=== PATIENT | male | born 1965 | race Caucasian/White ===

== ENCOUNTER 2019-02-23 14:49 | Observation (INO) | payer MEDICAID ==
[2019-02-23] MEDS ORDERED: Sodium Chloride 0.9% 1,000 ML IV ONE (15:15)
[2019-02-23] MEDS ORDERED: Ondansetron 4 MG/2 ML SDV IVPUSH ONE (15:23)
--- NOTE | 2019-02-23 15:49 | EDM.PDOC ---
ED HPI GENERAL MEDICAL PROBLEM - General Chief Complaint: Abdominal Pain Stated Complaint: PANCREAS ISSUES Time Seen by Provider: 02/23/19 15:14 Source of Information: Reports: Patient History Limitations: Reports: No Limitations - History of Present Illness INITIAL COMMENTS - FREE TEXT/NARRATIVE: HISTORY AND PHYSICAL: History of present illness: Patient is a 53-year-old male presents to the ED today with concern of mid abdominal pain 3 days. Patient states he has had one bout of prior pancreatitis which is felt somewhat similar to his symptoms today. Patient states his last episode was 5 years ago. Patient states it is caused by alcohol use. Patient states he drinks about 6 beers a day and every day. Patient rates his discomfort a 9 out of 10. Patient states he also feels nauseous but has not vomited. Patient states he's continued to eat despite the pain. Patient denies any other symptoms at this time. Patient denies scrotal or testicular pain or masses. Patient denies fever, chills, chest pain, shortness of breath, or cough. Denies headache, neck stiff ness, change in vision, syncope, or near syncope. Denies vomiting, diarrhea, constipation, or dysuria. Has not noted any blood in urine or stool. Patient has been eating and drinking appropriately. Patient denies any other health history. Review of systems: As per history of present illness and below otherwise all systems reviewed and negative. Past medical history: As per history of present illness and as reviewed below otherwise noncontributory. Surgical history: As per history of present illness and as reviewed below otherwise noncontributory. Social history: See social history for further information Family history: As per history of present illness and as reviewed below otherwise noncontributory. Physical exam: General: Patient is alert, oriented, and in no acute distress. Patient laying comfortably on exam table. Patient appears older than stated age. HEENT: Atraumatic, normocephalic, pupils equal and reactive bilaterally, negative for conjunctival pallor or scleral icterus, mucous membranes moist, TMs normal bilaterally, throat clear, neck supple, nontender, trachea midline. No drooling or trismus noted. No meningeal signs. No hot potato voice noted. Lungs: Mild wheezing to auscultation, breath sounds equal bilaterally, chest nontender. Heart: S1S2, regular rate and rhythm without overt murmur Abdomen: Moderate pain to palpation of the mid abdomen without guarding. Soft, nondistended. Negative for masses or hepatosplenomegaly. Negative for costovertebral tenderness. Pelvis: Stable nontender. Genitourinary: Deferred. Rectal: Deferred. Skin: Intact, warm, dry. No lesions or rashes noted. Extremities: Atraumatic, negative for cords or calf pain. Neurovascular unremarkable. Neuro: Awake, alert, oriented. Cranial nerves II through XII unremarkable. Cerebellum unremarkable. Motor and sensory unremarkable throughout. Exam nonfocal. Notes: Dr. Saldana verbally involved in patient care. Dr. Deal was consulted on patient and will admit to observation. Voices understanding and is agreeable to plan of care. Denies any further questions or concerns at this time. Diagnostics: CBC, CMP, UA, chest x-ray, EKG, troponin, lipase, amylase, abdominal pelvic CT, ABG, Blood ketone Therapeutics: Saline, Zofran, morphine, insulin Impression: Pancreatitis, unspecified Elevated glucose Plan: 1. Admit to observation to Dr. Deal. Definitive disposition and diagnosis as appropriate pending reevaluation and review of above. Left abdomen Pain Score (Numeric/FACES): 6 - Related Data Allergies Allergy/AdvReac Type Severity Reaction Status Date / Time No Known Allergies Allergy Verified 02/23/19 15:06 Home Meds: Home Meds Aspirin 325 mg PO DAILY 02/23/19 [History] Lisinopril 20 mg PO DAILY 02/23/19 [History] metFORMIN [Glucophage] 500 mg PO BID 02/23/19 [History] Past Medical History - Past Health History Medical/Surgical History: Denies Medical/Surgical History Gastrointestinal History: Reports: Pancreatitis Social & Family History - Family History Family Medical History: Noncontributory - Tobacco Use Smoking Status *Q: Current Every Day Smoker Years of Tobacco use: 20 Packs/Tins Daily: 1 - Caffeine Use Caffeine Use: Reports: Coffee - Recreational Drug Use Recreational Drug Use: Yes Recreational Drug Type: Reports: Marijuana/Hashish Recreational Drug Use Frequency: Socially ED ROS GENERAL - Review of Systems Review Of Systems: ROS reveals no pertinent complaints other than HPI. ED EXAM, GI/ABD - Physical Exam Exam: See Below (See dictation) Course - Vital Signs Last Recorded V/S: Last Vital Signs Temp 37.1 C 02/23/19 15:08 Pulse 91 02/23/19 15:08 Resp 22 H 02/23/19 15:08 BP 162/118 H 02/23/19 15:08 Pulse Ox 94 L 02/23/19 15:08 - Orders/Labs/Meds Orders: Active Orders 24 hr Category Date Time Status EKG Documentation Completion [RC] STAT Care 02/23/19 15:31 Active Glucose [Blood Glucose Check, Bedside] [RC] ONETIME Care 02/23/19 17:06 Active BLOOD GAS ARTERIAL [BG] Stat Lab 02/23/19 16:10 Ordered Labs: Laboratory Tests 02/23/19 02/23/19 02/23/19 Range/Units 15:15 15:26 15:26 WBC 5.44 (4.0-11.0) K/uL RBC 4.81 (4.50-5.90) M/uL Hgb 13.2 (13.0-17.0) g/dL Hct 38.8 (38.0-50.0) % MCV 80.7 (80.0-98.0) fL MCH 27.4 (27.0-32.0) pg MCHC 34.0 (31.0-37.0) g/dL RDW Std Deviation 43.3 (28.0-62.0) fl RDW Coeff of Chloe 15 (11.0-15.0) % Plt Count 169 (150-400) K/uL MPV 10.60 (7.40-12.00) fL Neut % (Auto) 67.3 (48.0-80.0) % Lymph % (Auto) 21.7 (16.0-40.0) % [place] % (Auto) 5.3 (0.0-15.0) % Eos % (Auto) 5.5 (0.0-7.0) % Baso % (Auto) 0.2 (0.0-1.5) % Neut # (Auto) 3.7 (1.4-5.7) K/uL Lymph # (Auto) 1.2 (0.6-2.4) K/uL [place] # (Auto) 0.3 (0.0-0.8) K/uL Eos # (Auto) 0.3 (0.0-0.7) K/uL Baso # (Auto) 0.0 (0.0-0.1) K/uL Nucleated RBC % 0.0 /100WBC Nucleated RBCs # 0 K/uL Sodium 129 L (136-148) mmol/L Potassium 5.0 (3.5-5.1) mmol/L Chloride 95 L (98-107) mmol/L Carbon Dioxide 23.4 (21.0-32.0) mmol/L BUN 17 (7.0-18.0) mg/dL Creatinine 1.3 (0.8-1.3) mg/dL Est Cr Clr Drug Dosing 73.79 mL/min Estimated GFR (MDRD) 58.2 ml/min Glucose 646 H* (74-106) mg/dL POC Glucose (60-110) mg/dL Calcium 9.7 (8.5-10.1) mg/dL Total Bilirubin 0.4 (0.2-1.0) mg/dL AST 25 (15-37) IU/L ALT 41 (14-63) IU/L Alkaline Phosphatase 124 H (46-116) U/L Troponin I (0.000-0.056) ng/mL Total Protein 7.9 (6.4-8.2) g/dL Albumin 4.1 (3.4-5.0) g/dL Globulin 3.8 (2.6-4.0) g/dL Albumin/Globulin Ratio 1.1 (0.9-1.6) Amylase 57 (25-115) U/L Lipase 438 H (73-393) U/L Urine Color YELLOW Urine Appearance CLEAR Urine pH 6.0 (5.0-8.0) Ur Specific [place] <= 1.005 (1.001-1.035) Urine Protein NEGATIVE (NEGATIVE) mg/dL Urine Glucose (UA) >=1000 (NEGATIVE) mg/dL Urine Ketones NEGATIVE (NEGATIVE) mg/dL Urine Occult Blood NEGATIVE (NEGATIVE) Urine Nitrite NEGATIVE (NEGATIVE) Urine Bilirubin NEGATIVE (NEGATIVE) Urine Urobilinogen 0.2 (<2.0) EU/dL Ur Leukocyte Esterase NEGATIVE (NEGATIVE) Ketones (NEG) 02/23/19 02/23/19 02/23/19 Range/Units 15:26 15:26 17:14 WBC (4.0-11.0) K/uL RBC (4.50-5.90) M/uL Hgb (13.0-17.0) g/dL Hct (38.0-50.0) % MCV (80.0-98.0) fL MCH (27.0-32.0) pg MCHC (31.0-37.0) g/dL RDW Std Deviation (28.0-62.0) fl RDW Coeff of Chloe (11.0-15.0) % Plt Count (150-400) K/uL MPV (7.40-12.00) fL Neut % (Auto) (48.0-80.0) % Lymph % (Auto) (16.0-40.0) % [place] % (Auto) (0.0-15.0) % Eos % (Auto) (0.0-7.0) % Baso % (Auto) (0.0-1.5) % Neut # (Auto) (1.4-5.7) K/uL Lymph # (Auto) (0.6-2.4) K/uL [place] # (Auto) (0.0-0.8) K/uL Eos # (Auto) (0.0-0.7) K/uL Baso # (Auto) (0.0-0.1) K/uL Nucleated RBC % /100WBC Nucleated RBCs # K/uL Sodium (136-148) mmol/L Potassium (3.5-5.1) mmol/L Chloride (98-107) mmol/L Carbon Dioxide (21.0-32.0) mmol/L BUN (7.0-18.0) mg/dL Creatinine (0.8-1.3) mg/dL Est Cr Clr Drug Dosing mL/min Estimated GFR (MDRD) ml/min Glucose (74-106) mg/dL POC Glucose 285 H (60-110) mg/dL Calcium (8.5-10.1) mg/dL Total Bilirubin (0.2-1.0) mg/dL AST (15-37) IU/L ALT (14-63) IU/L Alkaline Phosphatase (46-116) U/L Troponin I < 0.050 (0.000-0.056) ng/mL Total Protein (6.4-8.2) g/dL Albumin (3.4-5.0) g/dL Globulin (2.6-4.0) g/dL Albumin/Globulin Ratio (0.9-1.6) Amylase (25-115) U/L Lipase (73-393) U/L Urine Color Urine Appearance Urine pH (5.0-8.0) Ur Specific [place] (1.001-1.035) Urine Protein (NEGATIVE) mg/dL Urine Glucose (UA) (NEGATIVE) mg/dL Urine Ketones (NEGATIVE) mg/dL Urine Occult Blood (NEGATIVE) Urine Nitrite (NEGATIVE) Urine Bilirubin (NEGATIVE) Urine Urobilinogen (<2.0) EU/dL Ur Leukocyte Esterase (NEGATIVE) Ketones NEGATIVE (NEG) Meds: Medications Discontinued Medications Generic Name Dose Route Start Last Admin Trade Name Freq PRN Reason Stop Dose Admin Sodium Chloride 1,000 mls @ 999 mls/hr 02/23/19 15:15 02/23/19 15:32 Normal Saline IV 02/23/19 16:15 999 mls/hr BOLUS ONE Administration Insulin Human Regular 10 unit 02/23/19 16:08 02/23/19 16:45 Novolin R IVPUSH 02/23/19 16:09 10 unit ONETIME ONE Administration Protocol Insulin Human Regular 20 unit 02/23/19 16:09 02/23/19 16:49 Novolin R SUBCUT 02/23/19 16:10 20 unit ONETIME ONE Administration Protocol Iopamidol 90 ml 02/23/19 16:40 02/23/19 16:41 Isovue Multipack-370 (76%) IVPUSH 02/23/19 16:41 90 ml ONETIME ONE Administration Morphine Sulfate 2 mg 02/23/19 16:07 02/23/19 16:14 Morphine IVPUSH 02/23/19 16:08 2 mg ONETIME ONE Administration Ondansetron HCl 4 mg 02/23/19 15:23 02/23/19 15:33 Zofran IVPUSH 02/23/19 15:24 4 mg ONETIME ONE Administration Departure - Departure Time of Disposition: 17:40 Disposition: Refer to Observation Clinical Impression: Elevated glucose Pancreatitis Qualifiers: Chronicity: acute Pancreatitis type: other Acute pancreatitis complication: unspecified Qualified Code(s): K85.80 - Other acute pancreatitis without necrosis or infection - Discharge Information - My Orders Last 24 Hours: My Active Orders 02/23/19 15:31 EKG Documentation Completion [RC] STAT 02/23/19 16:10 BLOOD GAS ARTERIAL [BG] Stat 02/23/19 17:06 Glucose [Blood Glucose Check, Bedside] [RC] ONETIME - Assessment/Plan Last 24 Hours: My Active Orders 02/23/19 15:31 EKG Documentation Completion [RC] STAT 02/23/19 16:10 BLOOD GAS ARTERIAL [BG] Stat 02/23/19 17:06 Glucose [Blood Glucose Check, Bedside] [RC] ONETIME
[2019-02-23] MEDS ORDERED: Morphine 2 MG/ML Syringe IVPUSH ONE (16:07)
[2019-02-23] MEDS ORDERED: Insulin Regular, Human 100 Units/ML 10 ML Vial IVPUSH ONE (16:08)
[2019-02-23] MEDS ORDERED: Insulin Regular, Human 100 Units/ML 10 ML Vial SUBCUT ONE (16:09)
[2019-02-23] MEDS ORDERED: Iopamidol 755 MG/ML 500 ML Multipack Bottle IVPUSH ONE (16:40)
--- NOTE | 2019-02-23 16:55 | CR ---
HISTORY: Chest pain and shortness of breath. COMPARISON: None available FINDINGS: A portable erect AP view of the chest was obtained at 16 30 hours. The lungs are clear. No focal or diffuse infiltrates are present. Bilateral nipple shadows are seen. The heart is normal in size. The mediastinum is normal in appearance. The osseous structures are normal in appearance for the patient`s age. IMPRESSION: Normal portable chest single view. Dictated by Eric Garrison MD @ Feb 23 2019 4:52PM Signed by Dr. Eric Garrison @ Feb 23 2019 4:54PM
--- NOTE | 2019-02-23 17:30 | CT ---
INDICATION: Upper abdominal pain TECHNIQUE: CT abdomen and pelvis acquired with IV contrast. 90 mL of Isovue 370 administered COMPARISON: None available FINDINGS: Lower chest: Few small pulmonary nodular opacities measuring up to 3 mm. Liver: Unremarkable. Spleen: Unremarkable. Pancreas: Multiple pancreatic calcifications consistent with chronic calcific pancreatitis. Partially atrophic distal pancreatic body and tail. Gallbladder and bile ducts: An apparent small subtle curvilinear density within the gallbladder on image 50 could represent a poorly calcified gallstone or artifact. Adrenal glands: Slight adrenal nodularity. Kidneys: No hydronephrosis. Small nonobstructing left renal calcifications measuring up to 2 mm. A 1.7 cm higher than water attenuation left renal upper pole low-density lesion. Additional subcentimeter renal low-density lesions are too small to characterize, statistically representing cysts. GI tract: No high-grade mechanical bowel obstruction. Some fluid and gas-filled small bowel segments are nonspecific. A normal appendix. No significant pericolonic changes. Stool throughout the colon. Vascular structures: Minor, early atherosclerotic changes. Lymph nodes: Few shotty subcentimeter and borderline upper abdominal lymph nodes, nonspecific. Miscellaneous: No significant free fluid or free air. Pelvic Organs: A mildly prominent prostate. Mild bladder wall thickening. Bones: Unremarkable for age. IMPRESSION: No evidence of appendicitis, diverticulitis or high-grade mechanical bowel obstruction. Fluid and gas-filled small bowel segments are nonspecific. Correlate clinically to exclude enteritis. Findings consistent with chronic calcific pancreatitis. Partial atrophy of the distal pancreatic body and tail. A definite pancreatic body mass is not delineated, however further evaluation with contrast MRI is recommended. A mildly higher than water attenuation left renal low-density lesion which could represent a complicated cyst. Correlate with sonography and/or contrast MRI evaluation. Nonobstructive left renal calcifications. Mild bladder wall thickening. Correlate with urinalysis. Dictated by Tommie Calzada MD @ 02/23/2019 5:27:28 PM Please note that all CT scans at this facility use dose modulation, iterative reconstruction, and/or weight-based dosing when appropriate to reduce radiation dose to as low as reasonably achievable. Dictated by: Tommie Calzada MD @ 02/23/2019 17:28:01 (Electronically Signed)
[2019-02-23 18:10] LABS: HEMOGLOBIN A1C 10.3 % (4.5-6.2)
[2019-02-23] MEDS ORDERED: Docusate Sodium 100 MG Cap PO PRN (18:21)
[2019-02-23] MEDS ORDERED: Acetaminophen 325 MG Tab PO PRN (18:21)
[2019-02-23] MEDS ORDERED: oxyCODONE 5 MG Tab PO PRN (18:21)
[2019-02-23] MEDS ORDERED: Ondansetron 4 MG Tab.DIS PO PRN (18:21)
[2019-02-23] MEDS: Sodium Chloride 0.9% 1,000 ML IV SCH (18:49)
[2019-02-23] MEDS: Morphine 2 MG/ML Syringe IV PRN ×2 (18:50→21:45)
[2019-02-23] MEDS: Enoxaparin 40 MG/0.4 ML Syringe SUBCUT SCH (18:52)
--- NOTE | 2019-02-23 19:45 | PCM.HP ---
H&P History of Present Illness - General Date of Service: 02/23/19 Admit Problem/Dx: Admission Diagnosis/Problem Admission Diagnosis/Problem Pancreatitis Source of Information: Patient History Limitations: Reports: No Limitations - History of Present Illness Initial Comments - Free Text/Narative: The patient is a 53-year-old gentleman who presented to the emergency department out of complaint of severe abdominal pain which radiated directly to his back. The patient reports that he does have a history of chronic pancreatitis and he says this feels the same. The patient also reports that he had been consuming alcohol recently. Patient has been in the area for 3 days and he is from [place]. Also on presentation the patient's blood sugar was 646 mg/dL. Patient has had some nausea and vomiting associated with this. He has denied any dizziness or lightheadedness. He has no other complaints at the present time. The patient has said that he has been taking his medications. Onset of Symptoms: Reports: Sudden Duration of Symptoms: Reports: Day(s):, Getting Worse Location: Reports: Abdomen Quality: Reports: Stabbing, Throbbing Severity: Moderate Improves with: Reports: Medication, Rest Worsens with: Reports: Eating Context: Denies: Sick Contact Associated Symptoms: Reports: Nausea/Vomiting Left abdomen Pain Score (Numeric/FACES): 9 - Related Data Allergies/Adverse Reactions: Allergies Allergy/AdvReac Type Severity Reaction Status Date / Time No Known Allergies Allergy Verified 02/23/19 15:06 Home Medications: Home Meds Aspirin 325 mg PO DAILY 02/23/19 [History] Lisinopril 20 mg PO DAILY 02/23/19 [History] metFORMIN [Glucophage] 500 mg PO BID 02/23/19 [History] Past Medical History - Past Health History Medical/Surgical History: Denies Medical/Surgical History HEENT History: Reports: None Cardiovascular History: Reports: None Respiratory History: Reports: None Gastrointestinal History: Reports: Pancreatitis Genitourinary History: Reports: None Musculoskeletal History: Reports: None Neurological History: Reports: None Psychiatric History: Reports: None Endocrine/Metabolic History: Reports: Diabetes, Type II Hematologic History: Reports: None Immunologic History: Reports: None Oncologic (Cancer) History: Reports: None Dermatologic History: Reports: None - Past Surgical History GI Surgical History: Reports: None Social & Family History - Family History Family Medical History: Noncontributory - Tobacco Use Smoking Status *Q: Current Every Day Smoker Years of Tobacco use: 30 Packs/Tins Daily: 1 Second Hand Smoke Exposure: Yes - Caffeine Use Caffeine Use: Reports: Coffee - Alcohol Use Number of Drinks Per Day: 1 Date of Last Drink: 02/23/19 Time of Last Drink: 10:00 - Recreational Drug Use Recreational Drug Use: No Recreational Drug Type: Reports: Marijuana/Hashish Recreational Drug Use Frequency: Socially - Living Situation & Occupation Living situation: Reports: Single Occupation: Employed H&P Review of Systems - Review of Systems: Review Of Systems: See Below General: Reports: No Symptoms HEENT: Reports: No Symptoms Pulmonary: Reports: No Symptoms Cardiovascular: Reports: No Symptoms Gastrointestinal: Reports: Abdominal Pain, Anorexia, Nausea, Vomiting Genitourinary: Reports: No Symptoms Musculoskeletal: Reports: No Symptoms Skin: Reports: No Symptoms Psychiatric: Reports: No Symptoms Neurological: Reports: No Symptoms Hematologic/Lymphatic: Reports: No Symptoms Immunologic: Reports: No Symptoms Exam - Exam Exam: See Below - Vital Signs Vital Signs: Last Vital Signs Temp 37.1 C 02/23/19 15:08 Pulse 91 02/23/19 15:08 Resp 22 H 02/23/19 15:08 BP 162/118 H 02/23/19 15:08 Pulse Ox 94 L 02/23/19 15:08 Weight: 73.17 kg - Exam Quality Assessment: No: Supplemental Oxygen General: Alert, Oriented, Cooperative, Mild Distress HEENT: Conjunctiva Clear, EACs Clear, EOMI, Nares Patent, PERRLA. No: Mucosa Moist & [place] (Dry) Neck: Supple, Trachea Midline Lungs: Clear to Auscultation, Normal Respiratory Effort Cardiovascular: Regular Rate, Regular Rhythm GI/Abdominal Exam: Normal Bowel Sounds, Soft, No Distention, Tender (Epigastrium ). No: Guarding, Rigid, Rebound Back Exam: Normal Inspection, Full Range of Motion Extremities: Normal Inspection, Normal Range of Motion, No Pedal Edema Skin: Warm, Dry, Intact, Other (Multiple tattoos) Neurological: Cranial Nerves Intact Neuro Extensive - Mental Status: Alert, Oriented x3 Neuro Extensive - Motor, Sensory, Reflexes: CN II-XII Intact, Normal Gait Psychiatric: Alert, Normal Affect, Normal Mood - Patient Data Lab Results Last 24 hrs: Laboratory Results - last 24 hr 05/02/23/19 02/23/19 Range/Units 15:15 15:26 15:26 WBC 5.44 (4.0-11.0) K/uL RBC 4.81 (4.50-5.90) M/uL Hgb 13.2 (13.0-17.0) g/dL Hct 38.8 (38.0-50.0) % MCV 80.7 (80.0-98.0) fL MCH 27.4 (27.0-32.0) pg MCHC 34.0 (31.0-37.0) g/dL RDW Std Deviation 43.3 (28.0-62.0) fl RDW Coeff of Chloe 15 (11.0-15.0) % Plt Count 169 (150-400) K/uL MPV 10.60 (7.40-12.00) fL Neut % (Auto) 67.3 (48.0-80.0) % Lymph % (Auto) 21.7 (16.0-40.0) % Grand % (Auto) 5.3 (0.0-15.0) % Eos % (Auto) 5.5 (0.0-7.0) % Baso % (Auto) 0.2 (0.0-1.5) % Neut # (Auto) 3.7 (1.4-5.7) K/uL Lymph # (Auto) 1.2 (0.6-2.4) K/uL Grand # (Auto) 0.3 (0.0-0.8) K/uL Eos # (Auto) 0.3 (0.0-0.7) K/uL Baso # (Auto) 0.0 (0.0-0.1) K/uL Nucleated RBC % 0.0 /100WBC Nucleated RBCs # 0 K/uL ABG pH (7.35-7.45) ABG pCO2 (35-45) mmHG ABG pO2 (75-100) mmHG ABG HCO3 (22-26) mEq/L ABG Total CO2 ABG Base Excess (-2.0-2.0) Sodium 129 L (136-148) mmol/L Potassium 5.0 (3.5-5.1) mmol/L Chloride 95 L (98-107) mmol/L Carbon Dioxide 23.4 (21.0-32.0) mmol/L BUN 17 (7.0-18.0) mg/dL Creatinine 1.3 (0.8-1.3) mg/dL Est Cr Clr Drug Dosing 73.79 mL/min Estimated GFR (MDRD) 58.2 ml/min Glucose 646 H* (74-106) mg/dL POC Glucose (60-110) mg/dL Hemoglobin A1c (4.5-6.2) % Calcium 9.7 (8.5-10.1) mg/dL Total Bilirubin 0.4 (0.2-1.0) mg/dL AST 25 (15-37) IU/L ALT 41 (14-63) IU/L Alkaline Phosphatase 124 H (46-116) U/L Troponin I (0.000-0.056) ng/mL Total Protein 7.9 (6.4-8.2) g/dL Albumin 4.1 (3.4-5.0) g/dL Globulin 3.8 (2.6-4.0) g/dL Albumin/Globulin Ratio 1.1 (0.9-1.6) Amylase 57 (25-115) U/L Lipase 438 H (73-393) U/L Urine Color YELLOW Urine Appearance CLEAR Urine pH 6.0 (5.0-8.0) Ur Specific [place] <= 1.005 (1.001-1.035) Urine Protein NEGATIVE (NEGATIVE) mg/dL Urine Glucose (UA) >=1000 (NEGATIVE) mg/dL Urine Ketones NEGATIVE (NEGATIVE) mg/dL Urine Occult Blood NEGATIVE (NEGATIVE) Urine Nitrite NEGATIVE (NEGATIVE) Urine Bilirubin NEGATIVE (NEGATIVE) Urine Urobilinogen 0.2 (<2.0) EU/dL Ur Leukocyte Esterase NEGATIVE (NEGATIVE) Ketones (NEG) 02/23/19 02/23/19 02/23/19 Range/Units 15:26 15:26 17:14 WBC (4.0-11.0) K/uL RBC (4.50-5.90) M/uL Hgb (13.0-17.0) g/dL Hct (38.0-50.0) % MCV (80.0-98.0) fL MCH (27.0-32.0) pg MCHC (31.0-37.0) g/dL RDW Std Deviation (28.0-62.0) fl RDW Coeff of Chloe (11.0-15.0) % Plt Count (150-400) K/uL MPV (7.40-12.00) fL Neut % (Auto) (48.0-80.0) % Lymph % (Auto) (16.0-40.0) % Grand % (Auto) (0.0-15.0) % Eos % (Auto) (0.0-7.0) % Baso % (Auto) (0.0-1.5) % Neut # (Auto) (1.4-5.7) K/uL Lymph # (Auto) (0.6-2.4) K/uL Grand # (Auto) (0.0-0.8) K/uL Eos # (Auto) (0.0-0.7) K/uL Baso # (Auto) (0.0-0.1) K/uL Nucleated RBC % /100WBC Nucleated RBCs # K/uL ABG pH (7.35-7.45) ABG pCO2 (35-45) mmHG ABG pO2 (75-100) mmHG ABG HCO3 (22-26) mEq/L ABG Total CO2 ABG Base Excess (-2.0-2.0) Sodium (136-148) mmol/L Potassium (3.5-5.1) mmol/L Chloride (98-107) mmol/L Carbon Dioxide (21.0-32.0) mmol/L BUN (7.0-18.0) mg/dL Creatinine (0.8-1.3) mg/dL Est Cr Clr Drug Dosing mL/min Estimated GFR (MDRD) ml/min Glucose (74-106) mg/dL POC Glucose 285 H (60-110) mg/dL Hemoglobin A1c (4.5-6.2) % Calcium (8.5-10.1) mg/dL Total Bilirubin (0.2-1.0) mg/dL AST (15-37) IU/L ALT (14-63) IU/L Alkaline Phosphatase (46-116) U/L Troponin I < 0.050 (0.000-0.056) ng/mL Total Protein (6.4-8.2) g/dL Albumin (3.4-5.0) g/dL Globulin (2.6-4.0) g/dL Albumin/Globulin Ratio (0.9-1.6) Amylase (25-115) U/L Lipase (73-393) U/L Urine Color Urine Appearance Urine pH (5.0-8.0) Ur Specific [place] (1.001-1.035) Urine Protein (NEGATIVE) mg/dL Urine Glucose (UA) (NEGATIVE) mg/dL Urine Ketones (NEGATIVE) mg/dL Urine Occult Blood (NEGATIVE) Urine Nitrite (NEGATIVE) Urine Bilirubin (NEGATIVE) Urine Urobilinogen (<2.0) EU/dL Ur Leukocyte Esterase (NEGATIVE) Ketones NEGATIVE (NEG) 02/23/19 02/23/19 Range/Units 17:50 18:06 WBC (4.0-11.0) K/uL RBC (4.50-5.90) M/uL Hgb (13.0-17.0) g/dL Hct (38.0-50.0) % MCV (80.0-98.0) fL MCH (27.0-32.0) pg MCHC (31.0-37.0) g/dL RDW Std Deviation (28.0-62.0) fl RDW Coeff of Chloe (11.0-15.0) % Plt Count (150-400) K/uL MPV (7.40-12.00) fL Neut % (Auto) (48.0-80.0) % Lymph % (Auto) (16.0-40.0) % Grand % (Auto) (0.0-15.0) % Eos % (Auto) (0.0-7.0) % Baso % (Auto) (0.0-1.5) % Neut # (Auto) (1.4-5.7) K/uL Lymph # (Auto) (0.6-2.4) K/uL Grand # (Auto) (0.0-0.8) K/uL Eos # (Auto) (0.0-0.7) K/uL Baso # (Auto) (0.0-0.1) K/uL Nucleated RBC % /100WBC Nucleated RBCs # K/uL ABG pH 7.402 (7.35-7.45) ABG pCO2 39 (35-45) mmHG ABG pO2 86 (75-100) mmHG ABG HCO3 24 (22-26) mEq/L ABG Total CO2 21.7 ABG Base Excess -0.5 (-2.0-2.0) Sodium (136-148) mmol/L Potassium (3.5-5.1) mmol/L Chloride (98-107) mmol/L Carbon Dioxide (21.0-32.0) mmol/L BUN (7.0-18.0) mg/dL Creatinine (0.8-1.3) mg/dL Est Cr Clr Drug Dosing mL/min Estimated GFR (MDRD) ml/min Glucose (74-106) mg/dL POC Glucose (60-110) mg/dL Hemoglobin A1c 10.3 H (4.5-6.2) % Calcium (8.5-10.1) mg/dL Total Bilirubin (0.2-1.0) mg/dL AST (15-37) IU/L ALT (14-63) IU/L Alkaline Phosphatase (46-116) U/L Troponin I (0.000-0.056) ng/mL Total Protein (6.4-8.2) g/dL Albumin (3.4-5.0) g/dL Globulin (2.6-4.0) g/dL Albumin/Globulin Ratio (0.9-1.6) Amylase (25-115) U/L Lipase (73-393) U/L Urine Color Urine Appearance Urine pH (5.0-8.0) Ur Specific [place] (1.001-1.035) Urine Protein (NEGATIVE) mg/dL Urine Glucose (UA) (NEGATIVE) mg/dL Urine Ketones (NEGATIVE) mg/dL Urine Occult Blood (NEGATIVE) Urine Nitrite (NEGATIVE) Urine Bilirubin (NEGATIVE) Urine Urobilinogen (<2.0) EU/dL Ur Leukocyte Esterase (NEGATIVE) Ketones (NEG) Result Diagrams: 02/23/19 15:26 02/23/19 15:26 - Problem List (1) Pancreatitis SNOMED Code(s): 63661057 ICD Code: K85.90 - ACUTE PANCREATITIS WITHOUT NECROSIS OR INFECTION, UNSP Status: Acute Priority: High Current Visit: Yes Qualifiers: Chronicity: acute Pancreatitis type: alcohol induced Acute pancreatitis complication: unspecified Qualified Code(s): K85.20 - Alcohol induced acute pancreatitis without necrosis or infection (2) Alcohol abuse SNOMED Code(s): 37310744 ICD Code: F10.10 - ALCOHOL ABUSE, UNCOMPLICATED Status: Chronic Priority : High Current Visit: Yes (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, managed as type 1 SNOMED Code(s): 296300829 ICD Code: E13.9 - OTHER SPECIFIED DIABETES MELLITUS WITHOUT COMPLICATIONS Status: Chronic Priority: High Current Visit: Yes (4) Elevated glucose SNOMED Code(s): 09752028 ICD Code: R73.09 - OTHER ABNORMAL GLUCOSE Status: Chronic Priority: High Current Visit: Yes Problem List Initiated/Reviewed/Updated: Yes Orders Last 24hrs: Active Orders 24 hr Category Date Time Status Admission Status [Patient Status] [ADT] Stat ADT 02/23/19 17:42 Active Blood Glucose Check, Bedside [RC] WITHMEALSANDBED Care 02/23/19 18:21 Active Diabetes Education [RC] Click to Edit Care 02/23/19 18:23 Active Glucose [Blood Glucose Check, Bedside] [RC] ONETIME Care 02/23/19 17:06 Active Oxygen Therapy [RC] PRN Care 02/23/19 18:21 Active Up ad Mary [RC] ASDIRECTED Care 02/23/19 18:21 Active VTE/DVT Education [RC] PER UNIT ROUTINE Care 02/23/19 18:21 Active Vital Signs [RC] Q4H Care 02/23/19 18:21 Active Consult to Diabetic Nurse Specialist [CONS] Routine Cons 02/23/19 18:21 Active Nothing per Oral Now Diet [DIET] Diet 02/23/19 Dinner Active CBC WITH AUTO DIFF [HEME] AM Lab 02/24/19 05:11 Ordered COMPREHENSIVE METABOLIC PN,CMP [CHEM] AM Lab 02/24/19 05:11 Ordered Acetaminophen [Tylenol] Med 02/23/19 18:21 Active 650 mg PO Q4H PRN Docusate Sodium [Colace] Med 02/23/19 18:21 Active 100 mg PO BID PRN Enoxaparin [Lovenox] Med 02/23/19 18:30 Active 40 mg SUBCUT Q24H Insulin Aspart [NovoLOG] Med 02/24/19 07:30 Active See Protocol SUBCUT TIDAC Lisinopril [Prinivil] Med 02/24/19 09:00 Active 20 mg PO DAILY Morphine Med 02/23/19 18:30 Active 2 mg IV Q2H PRN Ondansetron [Zofran ODT] Med 02/23/19 18:21 Active 4 mg PO Q6H PRN Sodium Chloride 0.9% [Normal Saline] 1,000 ml Med 02/23/19 18:30 Active IV ASDIRECTED oxyCODONE Med 02/23/19 18:21 Active 5 mg PO Q4H PRN Glucose Management Sub Q Reflex [OM.PC] Click To Edit Oth 02/23/19 18:21 Ordered Resuscitation Status Routine Resus Stat 02/23/19 18:21 Ordered Medication Orders Acetaminophen (Tylenol) 650 mg PO Q4H PRN PRN Reason: Pain (Mild 1-3)/fever Docusate Sodium (Colace) 100 mg PO BID PRN PRN Reason: Constipation Enoxaparin Sodium (Lovenox) 40 mg SUBCUT Q24H [facility] Last Admin: 02/23/19 18:52 Dose: 40 mg Sodium Chloride (Normal Saline) 1,000 mls @ 125 mls/hr IV ASDIRECTED [facility] Last Admin: 02/23/19 18:49 Dose: 125 mls/hr Insulin Aspart (Novolog) 0 unit SUBCUT TIDAC [facility]; Protocol Lisinopril (Prinivil) 20 mg PO DAILY [facility] Morphine Sulfate (Morphine) 2 mg IV Q2H PRN PRN Reason: Pain (severe 7-10) Stop: 02/24/19 18:31 Last Admin: 02/23/19 18:50 Dose: 2 mg Ondansetron HCl (Zofran Odt) 4 mg PO Q6H PRN PRN Reason: nausea, able to take PO Oxycodone HCl (Oxycodone) 5 mg PO Q4H PRN PRN Reason: Pain (moderate 4-6) Assessment/Plan Comment:: The patient is a 53-year-old gentleman who has been admitted for acute on chronic pancreatitis. The patient admits to consuming alcohol. The patient also had a CT scan which shows pancreatic calcifications which are consistent with chronic pancreatitis. The patient will be kept nothing by mouth. He will be fluid resuscitated with normal saline IV 125 mL per hour. The patient will also have patient control with the use of IV narcotics. As soon as the patient is able he'll be transitioned to clear liquid diet as tolerated. I've also recommended that the patient be started completely on insulin and have requested certified adaptive physical educator evaluate the patient. The patient will also have his vital signs checked every 4 hours. The patient will also be anticoagulated with the use of Lovenox. The patient does have very dilute urine with heavy concentrations of glucose which is likely indicative of renal damage due to his diabetes. The patient has been advised of this. He should be appropriate for discharge in 1-2 days. Also repeat laboratory studies have been ordered. I've ordered a hemoglobin A1c. He also has been encouraged to ambulate.
[2019-02-24] MEDS: Morphine 2 MG/ML Syringe IV PRN ×4 (02:24→08:34)
[2019-02-24] MEDS: Sodium Chloride 0.9% 1,000 ML IV SCH ×5 (02:40→20:27)
[2019-02-24 06:45] LABS: CHLORIDE,CL 106 mmol/L (98-107); SODIUM,NA 137 mmol/L (136-148)
[2019-02-24] MEDS: Insulin Aspart 100 Units/ML 3 ML Pen SUBCUT SCH ×3 (07:30→17:56)
[2019-02-24] MEDS: Lisinopril 10 MG Tab PO SCH (08:34)
[2019-02-24] MEDS ORDERED: LORazepam 2 MG/ML SDV IVPUSH PRN (10:31)
[2019-02-24] MEDS ORDERED: Thiamine 200 MG/2 ML MDV IV SCH (10:45)
[2019-02-24] MEDS ORDERED: Morphine 2 MG/ML Syringe IVPUSH ONE (11:22)
[2019-02-24] MEDS: Folic Acid 50 MG/10 ML MDV SUBCUT SCH (11:35)
[2019-02-24] MEDS: Thiamine 100 MG in Sodium Chloride 0.9% 50 ML IV SCH (12:15)
--- NOTE | 2019-02-24 13:10 | PCM.PN ---
- General Info Date of Service: 02/24/19 Subjective Update: Persistent abdominal pain but no nausea vomiting fever. his last drank was yesterday morning. he drinks a 6 pack a day. hx of chronic pancreatitis and alcoholism. - Review of Systems General: Reports: Other (see hpi) - Patient Data Vitals - Most Recent: Last Vital Signs Temp 36.4 C 02/24/19 08:00 Pulse 65 02/24/19 08:00 Resp 16 02/24/19 08:00 BP 141/93 H 02/24/19 08:34 Pulse Ox 96 02/24/19 08:00 Weight - Most Recent: 73.17 kg I&O - Last 24 Hours: Intake & Output 02/23/19 02/24/19 02/24/19 22:59 06:59 14:59 Intake Total 1192 Balance 1192 Lab Results Last 24 Hours: Laboratory Results - last 24 hr 02/23/19 02/23/19 02/23/19 Range/Units 15:15 15:26 15:26 WBC 5.44 (4.0-11.0) K/uL RBC 4.81 (4.50-5.90) M/uL Hgb 13.2 (13.0-17.0) g/dL Hct 38.8 (38.0-50.0) % MCV 80.7 (80.0-98.0) fL MCH 27.4 (27.0-32.0) pg MCHC 34.0 (31.0-37.0) g/dL RDW Std Deviation 43.3 (28.0-62.0) fl RDW Coeff of Chloe 15 (11.0-15.0) % Plt Count 169 (150-400) K/uL MPV 10.60 (7.40-12.00) fL Neut % (Auto) 67.3 (48.0-80.0) % Lymph % (Auto) 21.7 (16.0-40.0) % [place] % (Auto) 5.3 (0.0-15.0) % Eos % (Auto) 5.5 (0.0-7.0) % Baso % (Auto) 0.2 (0.0-1.5) % Neut # (Auto) 3.7 (1.4-5.7) K/uL Lymph # (Auto) 1.2 (0.6-2.4) K/uL [place] # (Auto) 0.3 (0.0-0.8) K/uL Eos # (Auto) 0.3 (0.0-0.7) K/uL Baso # (Auto) 0.0 (0.0-0.1) K/uL Nucleated RBC % 0.0 /100WBC Nucleated RBCs # 0 K/uL ABG pH (7.35-7.45) ABG pCO2 (35-45) mmHG ABG pO2 (75-100) mmHG ABG HCO3 (22-26) mEq/L ABG Total CO2 ABG Base Excess (-2.0-2.0) Sodium 129 L (136-148) mmol/L Potassium 5.0 (3.5-5.1) mmol/L Chloride 95 L (98-107) mmol/L Carbon Dioxide 23.4 (21.0-32.0) mmol/L BUN 17 (7.0-18.0) mg/dL Creatinine 1.3 (0.8-1.3) mg/dL Est Cr Clr Drug Dosing 73.79 mL/min Estimated GFR (MDRD) 58.2 ml/min Glucose 646 H* (74-106) mg/dL POC Glucose (60-110) mg/dL Hemoglobin A1c (4.5-6.2) % Calcium 9.7 (8.5-10.1) mg/dL Total Bilirubin 0.4 (0.2-1.0) mg/dL AST 25 (15-37) IU/L ALT 41 (14-63) IU/L Alkaline Phosphatase 124 H (46-116) U/L Troponin I (0.000-0.056) ng/mL Total Protein 7.9 (6.4-8.2) g/dL Albumin 4.1 (3.4-5.0) g/dL Globulin 3.8 (2.6-4.0) g/dL Albumin/Globulin Ratio 1.1 (0.9-1.6) Amylase 57 (25-115) U/L Lipase 438 H (73-393) U/L Urine Color YELLOW Urine Appearance CLEAR Urine pH 6.0 (5.0-8.0) Ur Specific [place] <= 1.005 (1.001-1.035) Urine Protein NEGATIVE (NEGATIVE) mg/dL Urine Glucose (UA) >=1000 (NEGATIVE) mg/dL Urine Ketones NEGATIVE (NEGATIVE) mg/dL Urine Occult Blood NEGATIVE (NEGATIVE) Urine Nitrite NEGATIVE (NEGATIVE) Urine Bilirubin NEGATIVE (NEGATIVE) Urine Urobilinogen 0.2 (<2.0) EU/dL Ur Leukocyte Esterase NEGATIVE (NEGATIVE) Ketones (NEG) 02/23/19 02/23/19 02/23/19 Range/Units 15:26 15:26 17:14 WBC (4.0-11.0) K/uL RBC (4.50-5.90) M/uL Hgb (13.0-17.0) g/dL Hct (38.0-50.0) % MCV (80.0-98.0) fL MCH (27.0-32.0) pg MCHC (31.0-37.0) g/dL RDW Std Deviation (28.0-62.0) fl RDW Coeff of Chloe (11.0-15.0) % Plt Count (150-400) K/uL MPV (7.40-12.00) fL Neut % (Auto) (48.0-80.0) % Lymph % (Auto) (16.0-40.0) % [place] % (Auto) (0.0-15.0) % Eos % (Auto) (0.0-7.0) % Baso % (Auto) (0.0-1.5) % Neut # (Auto) (1.4-5.7) K/uL Lymph # (Auto) (0.6-2.4) K/uL [place] # (Auto) (0.0-0.8) K/uL Eos # (Auto) (0.0-0.7) K/uL Baso # (Auto) (0.0-0.1) K/uL Nucleated RBC % /100WBC Nucleated RBCs # K/uL ABG pH (7.35-7.45) ABG pCO2 (35-45) mmHG ABG pO2 (75-100) mmHG ABG HCO3 (22-26) mEq/L ABG Total CO2 ABG Base Excess (-2.0-2.0) Sodium (136-148) mmol/L Potassium (3.5-5.1) mmol/L Chloride (98-107) mmol/L Carbon Dioxide (21.0-32.0) mmol/L BUN (7.0-18.0) mg/dL Creatinine (0.8-1.3) mg/dL Est Cr Clr Drug Dosing mL/min Estimated GFR (MDRD) ml/min Glucose (74-106) mg/dL POC Glucose 285 H (60-110) mg/dL Hemoglobin A1c (4.5-6.2) % Calcium (8.5-10.1) mg/dL Total Bilirubin (0.2-1.0) mg/dL AST (15-37) IU/L ALT (14-63) IU/L Alkaline Phosphatase (46-116) U/L Troponin I < 0.050 (0.000-0.056) ng/mL Total Protein (6.4-8.2) g/dL Albumin (3.4-5.0) g/dL Globulin (2.6-4.0) g/dL Albumin/Globulin Ratio (0.9-1.6) Amylase (25-115) U/L Lipase (73-393) U/L Urine Color Urine Appearance Urine pH (5.0-8.0) Ur Specific [place] (1.001-1.035) Urine Protein (NEGATIVE) mg/dL Urine Glucose (UA) (NEGATIVE) mg/dL Urine Ketones (NEGATIVE) mg/dL Urine Occult Blood (NEGATIVE) Urine Nitrite (NEGATIVE) Urine Bilirubin (NEGATIVE) Urine Urobilinogen (<2.0) EU/dL Ur Leukocyte Esterase (NEGATIVE) Ketones NEGATIVE (NEG) 02/23/19 02/23/19 02/23/19 Range/Units 17:50 18:06 21:39 WBC (4.0-11.0) K/uL RBC (4.50-5.90) M/uL Hgb (13.0-17.0) g/dL Hct (38.0-50.0) % MCV (80.0-98.0) fL MCH (27.0-32.0) pg MCHC (31.0-37.0) g/dL RDW Std Deviation (28.0-62.0) fl RDW Coeff of Chloe (11.0-15.0) % Plt Count (150-400) K/uL MPV (7.40-12.00) fL Neut % (Auto) (48.0-80.0) % Lymph % (Auto) (16.0-40.0) % [place] % (Auto) (0.0-15.0) % Eos % (Auto) (0.0-7.0) % Baso % (Auto) (0.0-1.5) % Neut # (Auto) (1.4-5.7) K/uL Lymph # (Auto) (0.6-2.4) K/uL [place] # (Auto) (0.0-0.8) K/uL Eos # (Auto) (0.0-0.7) K/uL Baso # (Auto) (0.0-0.1) K/uL Nucleated RBC % /100WBC Nucleated RBCs # K/uL ABG pH 7.402 (7.35-7.45) ABG pCO2 39 (35-45) mmHG ABG pO2 86 (75-100) mmHG ABG HCO3 24 (22-26) mEq/L ABG Total CO2 21.7 ABG Base Excess -0.5 (-2.0-2.0) Sodium (136-148) mmol/L Potassium (3.5-5.1) mmol/L Chloride (98-107) mmol/L Carbon Dioxide (21.0-32.0) mmol/L BUN (7.0-18.0) mg/dL Creatinine (0.8-1.3) mg/dL Est Cr Clr Drug Dosing mL/min Estimated GFR (MDRD) ml/min Glucose (74-106) mg/dL POC Glucose 103 (60-110) mg/dL Hemoglobin A1c 10.3 H (4.5-6.2) % Calcium (8.5-10.1) mg/dL Total Bilirubin (0.2-1.0) mg/dL AST (15-37) IU/L ALT (14-63) IU/L Alkaline Phosphatase (46-116) U/L Troponin I (0.000-0.056) ng/mL Total Protein (6.4-8.2) g/dL Albumin (3.4-5.0) g/dL Globulin (2.6-4.0) g/dL Albumin/Globulin Ratio (0.9-1.6) Amylase (25-115) U/L Lipase (73-393) U/L Urine Color Urine Appearance Urine pH (5.0-8.0) Ur Specific [place] (1.001-1.035) Urine Protein (NEGATIVE) mg/dL Urine Glucose (UA) (NEGATIVE) mg/dL Urine Ketones (NEGATIVE) mg/dL Urine Occult Blood (NEGATIVE) Urine Nitrite (NEGATIVE) Urine Bilirubin (NEGATIVE) Urine Urobilinogen (<2.0) EU/dL Ur Leukocyte Esterase (NEGATIVE) Ketones (NEG) 02/24/19 02/24/19 02/24/19 Range/Units 06:15 06:15 06:30 WBC 5.40 (4.0-11.0) K/uL RBC 4.22 L (4.50-5.90) M/uL Hgb 11.3 L (13.0-17.0) g/dL Hct 34.1 L (38.0-50.0) % MCV 80.8 (80.0-98.0) fL MCH 26.8 L (27.0-32.0) pg MCHC 33.1 (31.0-37.0) g/dL RDW Std Deviation 44.0 (28.0-62.0) fl RDW Coeff of Chloe 15 (11.0-15.0) % Plt Count 144 L (150-400) K/uL MPV 9.90 (7.40-12.00) fL Neut % (Auto) 59.5 (48.0-80.0) % Lymph % (Auto) 30.2 (16.0-40.0) % [place] % (Auto) 5.7 (0.0-15.0) % Eos % (Auto) 4.4 (0.0-7.0) % Baso % (Auto) 0.2 (0.0-1.5) % Neut # (Auto) 3.2 (1.4-5.7) K/uL Lymph # (Auto) 1.6 (0.6-2.4) K/uL [place] # (Auto) 0.3 (0.0-0.8) K/uL Eos # (Auto) 0.2 (0.0-0.7) K/uL Baso # (Auto) 0.0 (0.0-0.1) K/uL Nucleated RBC % 0.0 /100WBC Nucleated RBCs # 0 K/uL ABG pH (7.35-7.45) ABG pCO2 (35-45) mmHG ABG pO2 (75-100) mmHG ABG HCO3 (22-26) mEq/L ABG Total CO2 ABG Base Excess (-2.0-2.0) Sodium 137 (136-148) mmol/L Potassium 4.1 (3.5-5.1) mmol/L Chloride 106 (98-107) mmol/L Carbon Dioxide 23.0 (21.0-32.0) mmol/L BUN 13 (7.0-18.0) mg/dL Creatinine 0.9 (0.8-1.3) mg/dL Est Cr Clr Drug Dosing 100.50 mL/min Estimated GFR (MDRD) > 60.0 ml/min Glucose 158 H (74-106) mg/dL POC Glucose 142 H (60-110) mg/dL Hemoglobin A1c (4.5-6.2) % Calcium 8.5 (8.5-10.1) mg/dL Total Bilirubin 0.4 (0.2-1.0) mg/dL AST 22 (15-37) IU/L ALT 33 (14-63) IU/L Alkaline Phosphatase 85 (46-116) U/L Troponin I (0.000-0.056) ng/mL Total Protein 6.3 L (6.4-8.2) g/dL Albumin 3.2 L (3.4-5.0) g/dL Globulin 3.1 (2.6-4.0) g/dL Albumin/Globulin Ratio 1.0 (0.9-1.6) Amylase (25-115) U/L Lipase (73-393) U/L Urine Color Urine Appearance Urine pH (5.0-8.0) Ur Specific [place] (1.001-1.035) Urine Protein (NEGATIVE) mg/dL Urine Glucose (UA) (NEGATIVE) mg/dL Urine Ketones (NEGATIVE) mg/dL Urine Occult Blood (NEGATIVE) Urine Nitrite (NEGATIVE) Urine Bilirubin (NEGATIVE) Urine Urobilinogen (<2.0) EU/dL Ur Leukocyte Esterase (NEGATIVE) Ketones (NEG) 02/24/ Range/Units 12:24 WBC (4.0-11.0) K/uL RBC (4.50-5.90) M/uL Hgb (13.0-17.0) g/dL Hct (38.0-50.0) % MCV (80.0-98.0) fL MCH (27.0-32.0) pg MCHC (31.0-37.0) g/dL RDW Std Deviation (28.0-62.0) fl RDW Coeff of Chloe (11.0-15.0) % Plt Count (150-400) K/uL MPV (7.40-12.00) fL Neut % (Auto) (48.0-80.0) % Lymph % (Auto) (16.0-40.0) % [place] % (Auto) (0.0-15.0) % Eos % (Auto) (0.0-7.0) % Baso % (Auto) (0.0-1.5) % Neut # (Auto) (1.4-5.7) K/uL Lymph # (Auto) (0.6-2.4) K/uL [place] # (Auto) (0.0-0.8) K/uL Eos # (Auto) (0.0-0.7) K/uL Baso # (Auto) (0.0-0.1) K/uL Nucleated RBC % /100WBC Nucleated RBCs # K/uL ABG pH (7.35-7.45) ABG pCO2 (35-45) mmHG ABG pO2 (75-100) mmHG ABG HCO3 (22-26) mEq/L ABG Total CO2 ABG Base Excess (-2.0-2.0) Sodium (136-148) mmol/L Potassium (3.5-5.1) mmol/L Chloride (98-107) mmol/L Carbon Dioxide (21.0-32.0) mmol/L BUN (7.0-18.0) mg/dL Creatinine (0.8-1.3) mg/dL Est Cr Clr Drug Dosing mL/min Estimated GFR (MDRD) ml/min Glucose (74-106) mg/dL POC Glucose 220 H (60-110) mg/dL Hemoglobin A1c (4.5-6.2) % Calcium (8.5-10.1) mg/dL Total Bilirubin (0.2-1.0) mg/dL AST (15-37) IU/L ALT (14-63) IU/L Alkaline Phosphatase (46-116) U/L Troponin I (0.000-0.056) ng/mL Total Protein (6.4-8.2) g/dL Albumin (3.4-5.0) g/dL Globulin (2.6-4.0) g/dL Albumin/Globulin Ratio (0.9-1.6) Amylase (25-115) U/L Lipase (73-393) U/L Urine Color Urine Appearance Urine pH (5.0-8.0) Ur Specific [place] (1.001-1.035) Urine Protein (NEGATIVE) mg/dL Urine Glucose (UA) (NEGATIVE) mg/dL Urine Ketones (NEGATIVE) mg/dL Urine Occult Blood (NEGATIVE) Urine Nitrite (NEGATIVE) Urine Bilirubin (NEGATIVE) Urine Urobilinogen (<2.0) EU/dL Ur Leukocyte Esterase (NEGATIVE) Ketones (NEG) Med Orders - Current: Current Medications Acetaminophen (Tylenol) 650 mg PO Q4H PRN PRN Reason: Pain (Mild 1-3)/fever Docusate Sodium (Colace) 100 mg PO BID PRN PRN Reason: Constipation Enoxaparin Sodium (Lovenox) 40 mg SUBCUT Q24H [facility] Last Admin: 02/23/19 18:52 Dose: 40 mg Folic Acid (Folic Acid) 1 mg SUBCUT DAILY [facility] Last Admin: 02/24/19 11:35 Dose: 1 mg Sodium Chloride (Normal Saline) 1,000 mls @ 200 mls/hr IV ASDIRECTED [facility] Last Admin: 02/24/19 10:06 Dose: 200 mls/hr Thiamine HCl 100 mg/ Sodium (Chloride) 51 mls @ 204 mls/hr IV DAILY [facility] Last Admin: 02/24/19 12:15 Dose: 204 mls/hr Insulin Aspart (Novolog) 0 unit SUBCUT TIDAC [facility]; Protocol Last Admin: 02/24/19 12:28 Dose: 4 units Lisinopril (Prinivil) 20 mg PO DAILY [facility] Last Admin: 02/24/19 08:34 Dose: 20 mg Lorazepam (Ativan) 0 mg IVPUSH Q4H PRN; Protocol PRN Reason: CIWAA Ondansetron HCl (Zofran Odt) 4 mg PO Q6H PRN PRN Reason: nausea, able to take PO Discontinued Medications Sodium Chloride (Normal Saline) 1,000 mls @ 999 mls/hr IV BOLUS ONE Stop: 02/23/19 16:15 Last Admin: 02/23/19 15:32 Dose: 999 mls/hr Insulin Human Regular (Novolin R) 10 unit IVPUSH ONETIME ONE; Protocol Stop: 02/23/19 16:09 Last Admin: 02/23/19 16:45 Dose: 10 unit Insulin Human Regular (Novolin R) 20 unit SUBCUT ONETIME ONE; Protocol Stop: 02/23/19 16:10 Last Admin: 02/23/19 16:49 Dose: 20 unit Iopamidol (Isovue Multipack-370 (76%)) 90 ml IVPUSH ONETIME ONE Stop: 02/23/19 16:41 Last Admin: 02/23/19 16:41 Dose: 90 ml Morphine Sulfate (Morphine) 2 mg IVPUSH ONETIME ONE Stop: 02/23/19 16:08 Last Admin: 02/23/19 16:14 Dose: 2 mg Morphine Sulfate (Morphine) 2 mg IV Q2H PRN PRN Reason: Pain (severe 7-10) Stop: 02/24/19 18:31 Last Admin: 02/24/19 08:34 Dose: 2 mg Morphine Sulfate (Morphine) 2 mg IVPUSH ONETIME ONE Stop: 02/24/19 11:23 Last Admin: 02/24/19 11:34 Dose: 2 mg Ondansetron HCl (Zofran) 4 mg IVPUSH ONETIME ONE Stop: 02/23/19 15:24 Last Admin: 02/23/19 15:33 Dose: 4 mg Oxycodone HCl (Oxycodone) 5 mg PO Q4H PRN PRN Reason: Pain (moderate 4-6) - Exam General: Alert, Oriented HEENT: Pupils Equal, Pupils Reactive, EOMI, Mucous Membr. Moist/[place] Neck: Supple Lungs: Clear to Auscultation, Normal Respiratory Effort Cardiovascular: Regular Rate, Regular Rhythm GI/Abdominal Exam: Normal Bowel Sounds, Soft, Non-Tender, No Organomegaly, No Distention, No Abnormal Bruit, No Mass, Pelvis Stable Skin: Warm, Dry, Intact Psy/Mental Status: Alert, Normal Affect, Normal Mood - Problem List Review Problem List Initiated/Reviewed/Updated: Yes - My Orders Last 24 Hours: My Active Orders 02/24/19 Lunch NPO Now [Nothing per Oral Now Diet] [DIET] - Plan Plan:: The patient is a 53-year-old gentleman who has been admitted for acute on chronic pancreatitis. The patient admits to consuming alcohol. The patient also had a CT scan which shows pancreatic calcifications which are consistent with chronic pancreatitis. The patient will be kept nothing by mouth. He will be fluid resuscitated with normal saline IV 125 mL per hour. The patient will also have patient control with the use of IV narcotics. As soon as the patient is able he'll be transitioned to clear liquid diet as tolerated. I've also recommended that the patient be started completely on insulin and have requested clinical unit educator evaluate the patient. The patient will also have his vital signs checked every 4 hours. The patient will also be anticoagulated with the use of Lovenox. The patient does have very dilute urine with heavy concentrations of glucose which is likely indicative of renal damage due to his diabetes. The patient has been advised of this. He should be appropriate for discharge in 1-2 days. Also repeat laboratory studies have been ordered. I've ordered a hemoglobin A1c. He also has been encouraged to ambulate. A: #1. Acute on chronic pancreatitis #2. Chronic alcoholism #3. Poorly controlled T2DM P: #1. IVNS 200ml/h #2. Call physician for pain control, otherwise would prefer no further narcotics #3. NPO until patient feels ready to advance diet #4. CIWA #5. Thiamine, folic acid #6. Consult DM educator - will need to go home on insulin
[2019-02-24] MEDS: Enoxaparin 40 MG/0.4 ML Syringe SUBCUT SCH (17:56)
[2019-02-25] MEDS: Sodium Chloride 0.9% 1,000 ML IV SCH ×3 (01:34→12:00)
[2019-02-25 06:43] LABS: CHLORIDE,CL 108 mmol/L (98-107); SODIUM,NA 139 mmol/L (136-148)
[2019-02-25] MEDS: Insulin Aspart 100 Units/ML 3 ML Pen SUBCUT SCH ×2 (09:18→12:01)
[2019-02-25] MEDS: Lisinopril 10 MG Tab PO SCH (09:20)
[2019-02-25] MEDS: Thiamine 100 MG in Sodium Chloride 0.9% 50 ML IV SCH (09:20)
[2019-02-25] MEDS: Folic Acid 50 MG/10 ML MDV SUBCUT SCH (09:20)
--- NOTE | 2019-02-25 16:34 | PCM.DCSUM1 ---
Discharge Summary - Discharge Data Discharge Date: 02/25/19 Discharge Disposition: Home, Self-Care 01 Condition: Stable - Patient Summary/Data Consults: Consultations 02/23/19 18:21 Consult to Diabetic Nurse Specialist [CONS] Routine Hospital Course: 53 yo male with pmh of chronic pancreatitis and alcoholism who was admitted for acute on chronic pancreatitis. He presented with abdominal pain after resumption of drinking. His lipase was 438. CT scan of abdomen reported chronic calcified pancreatitis. He was treated with IV fluids and pain management with morphine. Today he is tolerating an oral diet without pain medications. He is requesting discharge. He has developed diabetes and was recently started on metformin. His HgA1c was 10. community educator was consulted and he was given samples of long acting insulin which he is to take once a day with daily blood sugar checks. He is to follow up with staff development educator and his primary care doctor. - Discharge Plan Prescriptions/Med Rec: Insulin Glarg,Human.Rec.Analog [Lantus Solostar] 10 unit SUBCUT DAILY #1 pen Home Medications: Home Meds Aspirin 325 mg PO DAILY 02/23/19 [History] Lisinopril 20 mg PO DAILY 02/23/19 [History] metFORMIN [Glucophage] 500 mg PO BID 02/23/19 [History] Insulin Glarg,Human.Rec.Analog [Lantus Solostar] 10 unit SUBCUT DAILY #1 pen [Rx] Patient Handouts: What You Need to Know About Alcohol Abuse and Dependence, Adult, Chronic Pancreatitis Referrals: Mario Cannon MD [Physician] - 03/07/19 8:30 am - Discharge Summary/Plan Comment DC Time >30 min.: No - Patient Data Vitals - Most Recent: Last Vital Signs Temp 36.7 C 02/25/19 11:00 Pulse 76 02/25/19 11:00 Resp 16 02/25/19 11:00 BP 167/108 H 02/25/19 11:00 Pulse Ox 98 02/25/19 11:00 Weight - Most Recent: 73.17 kg I&O - Last 24 hours: Intake & Output 02/25/19 02/25/19 02/25/19 06:59 14:59 22:59 Intake Total 50 Balance 50 Lab Results - Last 24 hrs: Laboratory Results - last 24 hr 0502/24/19 02/25/19 Range/Units 16:43 22:15 06:11 Sodium 139 (136-148) mmol/L Potassium 4.0 (3.5-5.1) mmol/L Chloride 108 H (98-107) mmol/L Carbon Dioxide 22.2 (21.0-32.0) mmol/L BUN 7 (7.0-18.0) mg/dL Creatinine 0.9 (0.8-1.3) mg/dL Est Cr Clr Drug Dosing 100.50 mL/min Estimated GFR (MDRD) > 60.0 ml/min Glucose 160 H (74-106) mg/dL POC Glucose 160 H 285 H (60-110) mg/dL Calcium 8.8 (8.5-10.1) mg/dL 02/25/19 02/25/19 Range/Units 06:28 11:18 Sodium (136-148) mmol/L Potassium (3.5-5.1) mmol/L Chloride (98-107) mmol/L Carbon Dioxide (21.0-32.0) mmol/L BUN (7.0-18.0) mg/dL Creatinine (0.8-1.3) mg/dL Est Cr Clr Drug Dosing mL/min Estimated GFR (MDRD) ml/min Glucose (74-106) mg/dL POC Glucose 195 H 357 H (60-110) mg/dL Calcium (8.5-10.1) mg/dL Med Orders - Current: Current Medications Acetaminophen (Tylenol) 650 mg PO Q4H PRN PRN Reason: Pain (Mild 1-3)/fever Docusate Sodium (Colace) 100 mg PO BID PRN PRN Reason: Constipation Enoxaparin Sodium (Lovenox) 40 mg SUBCUT Q24H [facility] Last Admin: 02/24/19 17:56 Dose: 40 mg Folic Acid (Folic Acid) 1 mg SUBCUT DAILY [facility] Last Admin: 02/25/19 09:20 Dose: 1 mg Sodium Chloride (Normal Saline) 1,000 mls @ 200 mls/hr IV ASDIRECTED [facility] Last Admin: 02/25/19 12:00 Dose: 200 mls/hr Thiamine HCl 100 mg/ Sodium (Chloride) 51 mls @ 204 mls/hr IV DAILY [facility] Last Admin: 02/25/19 09:20 Dose: 204 mls/hr Insulin Aspart (Novolog) 0 unit SUBCUT TIDAC [facility]; Protocol Last Admin: 02/25/19 12:01 Dose: 10 units Lisinopril (Prinivil) 20 mg PO DAILY [facility] Last Admin: 02/25/19 09:20 Dose: 20 mg Lorazepam (Ativan) 0 mg IVPUSH Q4H PRN; Protocol PRN Reason: CIWAA Ondansetron HCl (Zofran Odt) 4 mg PO Q6H PRN PRN Reason: nausea, able to take PO Discontinued Medications Sodium Chloride (Normal Saline) 1,000 mls @ 999 mls/hr IV BOLUS ONE Stop: 02/23/19 16:15 Last Admin: 02/23/19 15:32 Dose: 999 mls/hr Insulin Human Regular (Novolin R) 10 unit IVPUSH ONETIME ONE; Protocol Stop: 02/23/19 16:09 Last Admin: 02/23/19 16:45 Dose: 10 unit Insulin Human Regular (Novolin R) 20 unit SUBCUT ONETIME ONE; Protocol Stop: 02/23/19 16:10 Last Admin: 02/23/19 16:49 Dose: 20 unit Iopamidol (Isovue Multipack-370 (76%)) 90 ml IVPUSH ONETIME ONE Stop: 02/23/19 16:41 Last Admin: 02/23/19 16:41 Dose: 90 ml Morphine Sulfate (Morphine) 2 mg IVPUSH ONETIME ONE Stop: 02/23/19 16:08 Last Admin: 02/23/19 16:14 Dose: 2 mg Morphine Sulfate (Morphine) 2 mg IV Q2H PRN PRN Reason: Pain (severe 7-10) Stop: 02/24/19 18:31 Last Admin: 02/24/19 08:34 Dose: 2 mg Morphine Sulfate (Morphine) 2 mg IVPUSH ONETIME ONE Stop: 02/24/19 11:23 Last Admin: 02/24/19 11:34 Dose: 2 mg Ondansetron HCl (Zofran) 4 mg IVPUSH ONETIME ONE Stop: 02/23/19 15:24 Last Admin: 02/23/19 15:33 Dose: 4 mg Oxycodone HCl (Oxycodone) 5 mg PO Q4H PRN PRN Reason: Pain (moderate 4-6)
== END 2019-02-25 17:15 | disposition home or self-care (01) ==
LOC: MW.ED 14:49 → MW.MS 17:54
PROVIDERS: ADMIT Internal Medicine; ATTEND Internal Medicine
DX: K85.20 Alcohol induced acute pancreatitis without necrosis or infection (principal); K86.1 Other chronic pancreatitis; E13.9 Other specified diabetes mellitus without complications; F17.210 Nicotine dependence, cigarettes, uncomplicated; Z79.82 Long term (current) use of aspirin; Z79.899 Other long term (current) drug therapy; Z79.84 Long term (current) use of oral hypoglycemic drugs
CPT/HCPCS: 36415; 36600; 71045; 74177; 80048; 80053; 81003; 82009; 82150; 82803; 82962; 83036; 83690; 84484; 85025; 93005; 96361; 96374; 96375; 99285; A9270; J1650; J1815; J2270; J2405; J3411; J7040; J7050; Q9967; 96365; 96372; 96376; 99284; G0378